=== PATIENT | female | born 1945 | race Two or more races ===

== ENCOUNTER → 2023-12-07 15:16 | Outpatient (REF) | payer OTHER, SELFPAY | LOC: DHCBC MAIN 15:16 | PROVIDERS: ATTENDING PHYSICIAN Internal Medicine Cardiovascular Disease; FAMILY PHYSICIAN Internal Medicine | DX: I25.119 Atherosclerotic heart disease of native coronary artery with unspecified angina pectoris (principal) | CPT/HCPCS: 93306 ==

== ENCOUNTER → 2025-04-26 10:25 | Outpatient (REF) | payer OTHER, SELFPAY | LOC: HWRCS 10:25 | PROVIDERS: ATTENDING PHYSICIAN Internal Medicine Cardiovascular Disease; FAMILY PHYSICIAN Internal Medicine | DX: I25.10 Atherosclerotic heart disease of native coronary artery without angina pectoris (principal); I47.20 Ventricular tachycardia, unspecified; Z95.810 Presence of automatic (implantable) cardiac defibrillator; E11.9 Type 2 diabetes mellitus without complications; I25.2 Old myocardial infarction | CPT/HCPCS: 93306 ==

== ENCOUNTER 2025-07-19 23:25 | Observation (INO) | payer OTHER, SELFPAY ==
[2025-07-19] VITALS (9 sets, daily range): BP systolic 126–179; BP diastolic 70–97; BMI 23.8
[2025-07-19 17:14] LABS: Hematocrit 29.7 % (37.0-47.0); Hemoglobin 9.1 g/dL (12.0-16.0); Mean Corp Hgb Conc. 30.6 g/dL (33.0-37.0); Mean Corpuscular Volume 76.0 fL (81.0-99.0); Nucleated Red Blood Cells % 0 %; Platelet Count 228 10^3/uL (130-400); Red Cell Dist. Width 15.5 % (11.5-14.5)
--- NOTE | 2025-07-19 17:17 | ED.GENMED ---
History of Present Illness
<MICHEAL Morin - Last Filed: 07/19/25 22:43>
General
Chief Complaint: Breathing Problem
Source: patient and family
Exam Limitations: none
Time Seen by Provider: 07/19/25 16:29
Nursing documentation reviewed up to this point in time: agreed with
History of Present Illness
History of Present Illness:
Patient is a 79-year-old female with past medical history of CAD/anterior wall MS history of cardiac arrest, with a drug-eluting stent systolic heart failure, ICD, diabetes hypertension hyperlipidemia diabetes, stent presents to the ER for
evaluation. Yesterday patient had a cough and subjective fevers and started with pain with deep breath and chest discomfort last night. She was unable to lay back because of discomfort and shortness of breath. Denies l/e swelling.
She is on Eliquis and has not missed a dose.
Past History
<MICHEAL Morin - Last Filed: 07/19/25 22:43>
Past History
ED Past Medical History: CAD, GERD, NIDDM and Other (Ischemic cardiomyopathy, long QT)
Social History
Tobacco: Non-smoker
Alcohol: None
Drug: None
Phy Exam
<MICHEAL Morin - Last Filed: 07/19/25 22:43>
General Physical Exam
General Presentation: no apparent distress
General age: appears stated age
General Skin: warm and dry
General Habitus: elderly
General Mental: alert
General Hydration: appears well hydrated
Cardiovascular Exam
Cardiovascular Exam: regular rate/rhythm, no murmur and normal peripheral pulses
Pulmonary Exam
Pulmonary Exam: other (rhonchi b/l )
Neurological Exam
Neurological Exam: alert and oriented x3
Musculoskeletal Exam
Musculoskeletal Exam: full ROM
Skin Exam
Skin Exam: normal color and warm/dry
Psychiatric Exam
Psychiatric Exam: normal mood/affect
Scores
<MICHEAL Morin - Last Filed: 07/19/25 22:43>
Heart Failure Risk
Heart Failure Risk Score: Not Applicable
Course
<MICHEAL Morin - Last Filed: 07/19/25 22:43>
Orders/Labs/Results
Orders:
Orders
07/19/25 16:02
Electrocardiogram (*1) Urgent
Reason for Study: Chest Pain
07/19/25 16:03
EKG- Treatment ONCE
07/19/25 16:56
Complete Blood Count/With Diff Urgent
Comprehensive Metabolic Panel Urgent
NT-proBNP Urgent
Comment: ADD ON
Troponin I Urgent
07/19/25 17:17
Chest [CR Chest - 2 Views ] Urgent
Comment:
Reason For Exam: sob pain with deep breath
07/19/25 17:29
COVID-19 Antigen Urgent
Source: Nasal Swab
Influenza A+B Rapid Molecular Urgent
JUDE Source: Nasal Swab
Specimen Description:
07/19/25 18:53
Add On- LAB Urgent
Tests Added?: cardiac BNP
07/19/25 19:15
Electrocardiogram (*1) Urgent
Reason for Study: Chest Pain
EKG- Treatment ONCE
07/19/25 19:17
Ipratropium/Albuterol Sulfate [Duoneb] 3 ml INH R NOW STA
07/19/25 19:18
Dexamethasone Sod Phosphate [Decadron] 10 mg IV NOW STA
07/19/25 20:22
Troponin I Urgent
07/19/25 21:00
CT Chest PE Study Urgent
Comment:
Reason For Exam: sob
Abnormal Lab Results
07/19/25
16:56
WBC 11.0 H 10^3/uL
(4.8-10.8)
RBC 3.91 L 10^6/uL
(4.20-5.40)
Hgb 9.1 L g/dL
(12.0-16.0)
Hct 29.7 L %
(37.0-47.0)
MCV 76.0 L fL
(81.0-99.0)
MCH 23.3 L pg
(27.0-31.0)
MCHC 30.6 L g/dL
(33.0-37.0)
RDW 15.5 H %
(11.5-14.5)
Absolute Neuts (auto) 9.4 H 10^3/uL
(1.4-6.5)
Absolute Lymphs (auto) 0.9 L 10^3/uL
(1.2-3.4)
Neutrophils % 85.4 H %
(42.2-75.2)
Lymphocytes % 8.0 L %
(20.5-51.1)
Glucose 150 H mg/dl
(70-99)
AST 41 H U/L
(14-36)
ALT 47 H U/L
(0-35)
07/19/25 16:56
07/19/25 16:56
Vital Signs
Initial and Last Documented VS:
Initial Vital Signs
Temp Pulse Resp BP Pulse Ox
98.8 F 105 30 179/97 90
07/19/25 16:03 07/19/25 16:03 07/19/25 16:03 07/19/25 16:03 07/19/25 16:03
Last Documented Vital Signs
Temp Pulse Resp BP Pulse Ox
98.8 F 80 13 138/70 98
07/19/25 16:03 07/19/25 21:45 07/19/25 21:45 07/19/25 21:00 07/19/25 21:45
Corn Shucker consulted with Physician
Corn Shucker consulted with physician?: Yes
Name of Physician Consulted: radu
<Justino Holt, DO - Last Filed: 07/19/25 19:19>
Orders/Labs/Results
Orders:
Orders
07/19/25 16:02
Electrocardiogram (*1) Urgent
Reason for Study: Chest Pain
07/19/25 16:03
EKG- Treatment ONCE
07/19/25 16:56
Complete Blood Count/With Diff Urgent
Comprehensive Metabolic Panel Urgent
NT-proBNP Urgent
Comment: ADD ON
Troponin I Urgent
07/19/25 17:17
Chest [CR Chest - 2 Views ] Urgent
Comment:
Reason For Exam: sob pain with deep breath
07/19/25 17:29
COVID-19 Antigen Urgent
Source: Nasal Swab
Influenza A+B Rapid Molecular Urgent
JUDE Source: Nasal Swab
Specimen Description:
07/19/25 18:53
Add On- LAB Urgent
Tests Added?: cardiac BNP
07/19/25 19:15
Electrocardiogram (*1) Urgent
Reason for Study: Chest Pain
EKG- Treatment ONCE
07/19/25 19:17
Ipratropium/Albuterol Sulfate [Duoneb] 3 ml INH R NOW STA
07/19/25 19:18
Dexamethasone Sod Phosphate [Decadron] 10 mg IV NOW STA
07/19/25 20:22
Troponin I Urgent
07/19/25 21:00
CT Chest PE Study Urgent
Comment:
Reason For Exam: sob
Abnormal Lab Results
07/19/25
16:56
WBC 11.0 H 10^3/uL
(4.8-10.8)
RBC 3.91 L 10^6/uL
(4.20-5.40)
Hgb 9.1 L g/dL
(12.0-16.0)
Hct 29.7 L %
(37.0-47.0)
MCV 76.0 L fL
(81.0-99.0)
MCH 23.3 L pg
(27.0-31.0)
MCHC 30.6 L g/dL
(33.0-37.0)
RDW 15.5 H %
(11.5-14.5)
Absolute Neuts (auto) 9.4 H 10^3/uL
(1.4-6.5)
Absolute Lymphs (auto) 0.9 L 10^3/uL
(1.2-3.4)
Neutrophils % 85.4 H %
(42.2-75.2)
Lymphocytes % 8.0 L %
(20.5-51.1)
Glucose 150 H mg/dl
(70-99)
AST 41 H U/L
(14-36)
ALT 47 H U/L
(0-35)
07/19/25 16:56
07/19/25 16:56
Vital Signs
Initial and Last Documented VS:
Initial Vital Signs
Temp Pulse Resp BP Pulse Ox
98.8 F 105 30 179/97 90
07/19/25 16:03 07/19/25 16:03 07/19/25 16:03 07/19/25 16:03 07/19/25 16:03
Last Documented Vital Signs
Temp Pulse Resp BP Pulse Ox
98.8 F 80 13 138/70 98
07/19/25 16:03 07/19/25 21:45 07/19/25 21:45 07/19/25 21:00 07/19/25 21:45
<MICHEAL Morin - Last Filed: 07/19/25 22:43>
MDM/Problems Addressed
Differential Diagnosis Includes:
Not limited to ACS, CHF, pneumonia, bronchitis, less likely PE
MDM/Problems Addressed:
Patient started with cough yesterday subjective fevers worsening shortness of breath since. difficulty laying back due to shortness of breath. Patient presented here hypoxic rhonchi on exam. Patient was given nebs and steroids which did relieve
her symptoms. After nebulizer her pulse ox has improved. Patient is afebrile white count 11.0 hemoglobin 9.1 slightly decreased from 2022, normal renal function initial cardiac troponin less than 0.012 repeat 0.014 no acute EKG findings neg covid
neg flu.
No acute findings of failure on chest x-ray CAT scan negative for PE findings this is a bronchitis. Patient given additional neb will admit for continued observation .
patient was evaluated by ED physician
<MICHEAL Morin - Last Filed: 07/19/25 22:43>
*Radiology
Radiology exam reviewed: radiology read reviewed
*Pulse Oximetry
SaO2: 94
Oxygen Mode of Delivery: Room air
Patient hypoxic: yes
*EKG
Interpreted by ED Provider?: Yes
Interpretation: abnormal
Heart Rate: 102
Ischemia: non-specific ST changes
*Critical Care Note
Total Time (30-74mins, 75-104mins- exclusive of procedures): Not Applicable
ED Attending Note
<MICHEAL Morin - Last Filed: 07/19/25 22:43>
-
Portions of this chart may have been created with voice recognition software.� Occasional wrong word or��sound alike� substitutions may have occurred due to the inherent limitations of voice recognition software.
<Justino Holt DO - Last Filed: 07/19/25 19:19>
ED Attending Note
Patient seen and examined by attending physician: Yes
I performed the substantive portion of visit, reviewed & personally made and approve the management plan that is documented in note by myself or YU.: Yes
ED Attending Note:
Seen with A[employer] OPERATOR examined independently shortness of breath cough fever on exam requiring oxygen with wheezing, chest x-ray noted, suspect viral versus bacterial pneumonia plan will be nebs oxygen steroids
Discharge Plan
Departure
Patient Disposition: Admit
Date of Disposition: 07/19/25
Time of Disposition: 22:43
Admit to: Telemetry
Admit to doctor: hospitalist
Presentation/result/management discussed w/ accepting MD/DO: Hospitalist
Patient with high blood pressure during this ER visit?: Yes
Condition: Fair
Covid-19: Not Applicable
Discharge Problem:
hypoxia, Bronchitis
Prescriptions:
No Action
latanoprost 0.005 % Drops
1 drp BOTH EYES HS
metformin 500 mg Tablet
250 mg PO BID
acetaminophen [Tylenol] 325 mg Tablet
650 mg PO Q6HPRN PRN (Reason: mild pain)
carvedilol [Coreg] 12.5 mg Tablet
12.5 mg PO BID
isosorbide mononitrate [Imdur] 30 mg Tablet Extended Release 24 Hr
30 mg PO DAILY
Theragen Tablet
1 tab PO DAILY
levothyroxine [Synthroid] 25 mcg Tablet
25 mcg PO DAILY
losartan 100 mg Tablet
100 mg PO DAILY
rosuvastatin [Crestor] 40 mg Tablet
40 mg PO DAILY
Eliquis 5 mg Tablet
5 mg PO BID
aspirin 81 MG tablet,chewable
81 mg PO DAILY@1200
Referrals:
Juan Richmond MD [Family Provider, Internal Medicine]
Interventions
Interventions:
*Risk Screen - Suicide Last Done: 07/19/25 16:06
*General Assessment Last Done: 07/19/25 16:06
*Neglect/Abuse Screening Last Done: 07/19/25 16:06
*ED- Fall Risk Assessment Last Done: 07/19/25 16:06
*ED COVID-19 Vaccine History Last Done: 07/19/25 16:06
*ED Influenza Vaccine History Last Done: 07/19/25 16:06
ED- Cardiac Assessment Last Done: 07/19/25 16:11
ED- Pulmonary Assessment Last Done: 07/19/25 16:11
Discharge Date and Time
Print Language: ANDORRAN
[2025-07-19 17:41] LABS: ALT (SGPT) 47 U/L (0-35); AST (SGOT) 41 U/L (14-36); Albumin 3.9 g/dl (3.5-5.0); Alkaline Phosphatase 88 U/L (38-126); Blood Urea Nitrogen 13 mg/dl (7-17); Calcium 9.0 mg/dl (8.4-10.2); Carbon Dioxide 25 mmol/L (22-30); Chloride 105 mmol/L (98-107); Estimated Creatinine Clearance 48 ml/min; Glucose 150 mg/dl (70-99); Potassium 4.0 mmol/L (3.5-5.1); Sodium 137 mmol/L (135-145); Total Protein 6.7 g/dl (6.3-8.2); eGFR > 60.00
[2025-07-19 17:47] LABS: Troponin I < 0.012 ng/ml
[2025-07-19 17:54] LABS: COVID-19 Antigen Negative (Negative)
[2025-07-19] MEDS: DUONEB 3 ML INH (19:43)
[2025-07-19] MEDS: DECADRON 10 MG IV (19:45)
[2025-07-19 20:58] LABS: Troponin I 0.014 ng/ml
[2025-07-19] MEDS: VENTOLIN NEBULES 2.5 MG INH (22:41)
--- NOTE | 2025-07-19 22:43 | HPS.HSE ---
Family Physician
-
Family Physician: Juan Richmond
Chief Complaint
-
Shortness of breath
History of Present Illness
This is a 79-year-old female with past medical history significant for CAD status post MT and cardiac arrest status post AICD and stenting, ischemic myopathy with slightly reduced EF, bcm-mkdvzsa-vfmcpkyse diabetes, hypertension, hyperlipidemia and
hypothyroid presenting to the emergency department with cough and worsening shortness of breath.
Patient reports that a few days ago she started having sore throat and a mild chest congestion. A family member who also had upper respiratory infection that was very brief. She reports headache and subjective fevers but no measured fevers. She
reported that her cough improved after cough syrup resulting in a fake cough that is difficult to produce. She reports that she became more short of breath with increasing chest tightness and had to come to the emergency department. She was
altered on arrival in the emergency department she was hypoxic. Family reported that after the first round of nebs patient felt much improved and she close it back and take deep breaths. She has no history of blood clots and is currently on
anticoagulation. She denies any acute weight gain or lower extremity edema. She does point to bilateral knee effusions which have been there chronically. She reports orthopnea since the cough began.
In the emergency department patient is afebrile. Blood pressure was 145/73 with a pulse of 87 she was satting 95%. ECG shows a normal sinus rhythm at rate of 93 with known Q waves on unchanged from prior. Troponin was normal. BNP was elevated at
3500 which is similar to prior. Chest x-ray shows no acute infiltrates. CBC shows a white count of 11.0 and hemoglobin of 9.0 which is similar to prior. Platelet count was normal. Electrolytes BUN/creatinine were normal.
COVID test was negative, flu test was negative.
She had a CT of the abdomen pelvis which was negative for PE, issues no focal infiltrates but showed bronchial wall thickening. No pulmonary edema noted.
Medical History
Past Medical History
Past Medical History: Reports Arrhythmia (Proximal atrial fibrillation), CAD, CHF (Ischemic cardiomyopathy), Hypercholesterolemia, Hypothyroidism and NIDDM
Past Surgical History: Reports Other
Social History
Tobacco: Non-smoker
Alcohol: None
Living: With Family
Family History
Family History: Not pertinent
Allergies / Home Medications
Allergies reflects when Allergies were last updated in [employer].
Home Medications with original date entered in [employer]
Allergy/Medication List:
Allergies
Allergy/AdvReac Type Severity Reaction Status Date / Time
No Known Allergies Allergy Verified 05/23/20 18:34
Home Medications
acetaminophen 325 mg tablet (Tylenol) 650 mg PO Q6HPRN PRN mild pain 07/19/25
apixaban 5 mg tablet (Eliquis) 5 mg PO BID 07/19/25
aspirin 81 mg chewable tablet 81 mg PO DAILY@1200 07/19/25
carvedilol 12.5 mg tablet (Coreg) 12.5 mg PO BID 07/19/25
isosorbide mononitrate 30 mg tablet,extended release 24 hr 30 mg PO DAILY 07/19/25
latanoprost 0.005 % eye drops 1 drp BOTH EYES HS 07/19/25
levothyroxine 25 mcg tablet (Synthroid) 25 mcg PO DAILY 07/19/25
losartan 100 mg tablet 100 mg PO DAILY 07/19/25
metformin 500 mg tablet 250 mg PO BID 07/19/25
rosuvastatin 40 mg tablet (Crestor) 40 mg PO DAILY 07/19/25
therapeutic multivitamin 1 tab PO DAILY 07/19/25
Review of Systems
-
Constitutional: Reports Fever
EENT: Reports No Symptoms
Respiratory: Reports Cough and Trouble Breathing
Cardiac: Reports No Symptoms
Abdomen/GI: Reports No Symptoms
: Reports No Symptoms
Musculoskeletal: Reports No Symptoms
Skin: Reports No Symptoms
Neurological: Reports No Symptoms
Endocrine: Reports No Symptoms
Hematologic/Lymphatic: Reports No Symptoms
Psych: Reports No Symptoms
Physical Exam
Vital Signs
Vital Signs
Temp Pulse Resp BP Pulse Ox
98.8 F 87 28 145/73 95
07/19/25 16:03 07/19/25 22:15 07/19/25 22:15 07/19/25 22:00 07/19/25 22:34
Physical Exam
General: Well Developed, Well Nourished and No Apparent Distress
HEENT: NormoCephalic, Moist mucous membranes and Atraumatic
Respiratory: Clear
Cardiac: S1/S2 and Regular Rhythm; No Murmur or Rub
GI: Soft, Non Tender, Non Distended and Normal Bowel Sounds; No Organomegaly
Rectal: Deferred by Provider
Musculoskeletal: No Clubbing, No Cyanosis and No Edema
Skin: No Rash
Neuro: Nonfocal/grossly intact
Laboratory Results
-
07/19/25 16:56
07/19/25 16:56
Laboratory Results
Total Bilirubin 0.6 mg/dl (0.2-1.3) 07/19/25 16:56
AST 41 U/L (14-36) H 07/19/25 16:56
ALT 47 U/L (0-35) H 07/19/25 16:56
Alkaline Phosphatase 88 U/L (38-126) 07/19/25 16:56
Troponin I 0.014 ng/ml 07/19/25 20:22
Data Reviewed
-
Diagnostic Radiology: Image Personally Visualized and interpreted
CT Scan: Report Reviewed by me
Lab Data: Labs Reviewed by me
Old Records: Reviewed
Impression/Plan
-
IMPRESSION:
79-year-old female with past medical history of ischemic cardiomyopathy, history of MT and cardiac arrest status post AICD and stenting with last stent placed 2 years ago and on anticoagulation for CAD, qnk-bjclekh-uljsivduw diabetes coming in with
cough and shortness of breath. Hypoxic on arrival in the emergency department. Currently improved and is satting about 90 to 93% on room air. Chest x-ray is clear. CT shows no pulmonary embolism or acute infiltrates or edema. He did show some
bronchial wall thickening consistent with bronchitis. COVID and flu test are negative. Patient has a slight WBC count increase of 11 the rest of her labs are unremarkable. BNP is similar to prior and likely reflect chronic ischemic
cardiomyopathy. Troponin was negative. ECG is nonischemic.
PLAN:
Acute bronchitis -patient likely with acute bronchitis and no pneumonia but cannot rule out atypical pneumonia entirely. She is afebrile here and no significant leukocytosis and hemodynamically stable. Mild hypoxia. Improved with nebs
- Admit to MedSurg observation
- Prednisone 40 mg daily
- DuoNebs [id number]-[id number], as needed albuterol
- given patient's risk factor we will start her on doxycycline
- Wean oxygen
- Monitor weights
CAD
- Continue
- Continue aspirin
--Continue statin, Imdur and carvedilol
Ischemic cardiomyopathy -BNP elevated, no evidence of volume overload
- Continue losartan, Daily weight
Qbu-iiaoeib-gaajadnkd diabetes
- Hold metformin x 24 hours
- Sliding scale insulin
DVT prophylaxis�on apixaban
CODE STATUS�full code
[2025-07-20] VITALS: BP 151/94
--- NOTE | 2025-07-20 00:13 | PTCARENOTE ---
Patient arrived to unit via stretcher. AAOx3. [address] at 2 liters. Oriented to unit. Call cleaning within reach.
[2025-07-20 00:38] VITALS: BP 189/98; BMI 23.6
[2025-07-20 01:02] VITALS: BMI 23.6
[2025-07-20] MEDS: VIBRAMYCIN 100 MG PO ×2 (01:11→09:18)
[2025-07-20] MEDS: ROBITUSSIN DM 5 ML PO ×2 (01:16→09:38)
[2025-07-20] MEDS: SYNTHROID 25 MCG PO (05:09)
[2025-07-20 06:00] VITALS: BMI 23.6
[2025-07-20 07:00] VITALS: BP 171/92
[2025-07-20 07:15] LABS: Hematocrit 29.0 % (37.0-47.0); Hemoglobin 9.1 g/dL (12.0-16.0); Mean Corp Hgb Conc. 31.4 g/dL (33.0-37.0); Mean Corpuscular Volume 75.9 fL (81.0-99.0); Platelet Count 235 10^3/uL (130-400); Red Cell Dist. Width 15.3 % (11.5-14.5)
[2025-07-20 07:22] LABS: Blood Urea Nitrogen 13 mg/dl (7-17); Calcium 9.2 mg/dl (8.4-10.2); Carbon Dioxide 23 mmol/L (22-30); Chloride 106 mmol/L (98-107); Estimated Creatinine Clearance 55 ml/min; Glucose 219 mg/dl (70-99); Potassium 4.4 mmol/L (3.5-5.1); Sodium 136 mmol/L (135-145); eGFR > 60.00
[2025-07-20 07:53] LABS: Glucose - Point of Care 205 mg/dl (70-99)
[2025-07-20] MEDS: VENTOLIN NEBULES 2.5 MG INH (08:10)
--- NOTE | 2025-07-20 08:40 | W.PN.HOSP.TC ---
Today's Communication/Plan
-
Discharge home
Assessment / Plan
Assessment / Plan
Impression:
79-year-old female with past medical history of ischemic cardiomyopathy, history of ME and cardiac arrest status post AICD and stenting with last stent placed 2 years ago and on anticoagulation for CAD, nyy-buodvhi-bhizqszvc diabetes coming in with
cough and shortness of breath. Hypoxic on arrival in the emergency department. Currently improved and is satting about 90 to 93% on room air. Chest x-ray is clear. CT shows no pulmonary embolism or acute infiltrates or edema. He did show some
bronchial wall thickening consistent with bronchitis. COVID and flu test are negative. Patient has a slight WBC count increase of 11 the rest of her labs are unremarkable. BNP is similar to prior and likely reflect chronic ischemic
cardiomyopathy. Troponin was negative. ECG is nonischemic.
Overall symptoms improved with antibiotic/steroid/breathing treatment.
Currently on room air.
Passed ambulatory pulse ox on exertion.
Will be discharged home
Assessment/plan:
Acute bronchitis -patient likely with acute bronchitis and no pneumonia but cannot rule out atypical pneumonia entirely. She is afebrile here and no significant leukocytosis and hemodynamically stable. Mild hypoxia. Improved with nebs
- Admit to MedSurg observation
- Prednisone 40 mg daily
- DuoNebs [id number], as needed albuterol
- given patient's risk factor we will start her on doxycycline
- Wean oxygen
- Monitor weights
07/20
Discharge home on oral prednisone/doxycycline/breathing treatment
CAD
- Continue
- Continue aspirin
--Continue statin, Imdur and carvedilol
Ischemic cardiomyopathy -BNP elevated, no evidence of volume overload
- Continue losartan, Daily weight
Egs-clebobi-oyhnyqxtu diabetes
- Hold metformin x 24 hours
- Sliding scale insulin
Hypertension.
Continue home meds.
May need adjustment as outpatient since blood pressure was elevated during hospitalization
Pulmonary nodule.
Discussed with family at bedside.
Need follow-up with PCP as outpatient.
Low risk patient with no history of smoking
CODE STATUS: Full code
DVT prophylaxis: Eliquis
Diet: Regular diet
Family communication: Discussed with daughter and granddaughter at bedside
Disposition: Discharge home
Total time spent on today's encounter was 52 minutes which included time spent in counseling the patient/family regarding diagnosis and treatment plan as listed above, goals of care, and symptom management. Case was discussed with nursing staff,
specialists, and care coordinators/case management. All labs and imaging personally reviewed by me. Remainder the time spent in detailed review of previous records, lab data, imaging, and other medical provider documentation.
Anticipated Discharge: Today
Subjective/Interval History
-
Date of Service: July 20, 2025
Patient seen and examined at bedside, denies any chest pain , shortness of breath Improved, no abdominal pain, no nausea, no vomiting, no diarrhea or constipation.
No wheezing, currently on room air.
Objective Data
-
Labs:
Laboratory Results
07/20/25
06:13
WBC 6.8
Hgb 9.1 L
Hct 29.0 L
Plt Count 235
Sodium 136
Potassium 4.4
Chloride 106
Carbon Dioxide 23
BUN 13
Creatinine 0.7
Glucose 219 H
Calcium 9.2
Vital Signs:
Vital Signs
Temp Pulse Resp BP Pulse Ox
97.9 F 77 16 171/92 97
07/20/25 07:00 07/20/25 08:16 07/20/25 08:16 07/20/25 07:00 07/20/25 08:16
I&O
07/19/25 07/20/25 07/21/25
06:59 06:59 06:59
Intake Total 480 / 480
Balance 480 / 480
Physical Exam
-
General: Well Developed, Well Nourished, No Apparent Distress and Comfortable
HEENT: Normocephalic, Atraumatic, Moist Mucous Membranes, No Ptosis, PERRLA and Nose Appears Normal
Respiratory: Rales and Non Labored Respirations
Cardiac: Regular Rhythm and S1/S2
Breast: Deferred by me
GI: Soft, Nontender, Nondistended and Normal Bowel Sounds
Genito-urinary: No Costovertebral Tender
Musculoskeletal: No Clubbing, No Cyanosis and No Edema
Skin: Warm
Neuro: Awake, Alert, Oriented, AO x 3 and No Motor Deficits
Psych: Calm
Data Reviewed
-
Diagnostic Radiology: Image personally visualized and interpreted and Report Reviewed by me
CT Scan: Image personally visualized and interpreted and Report Reviewed by me
Ultrasound: Image personally visualized and interpreted and Report Reviewed by me
MRI: Image personally visualized and interpreted and Report Reviewed by me
Medical Tests (Nuc Med, Echo etc): Image personally visualized and interpreted and Report Reviewed by me
Labs: Labs Reviewed by me
Old Records: Reviewed
[2025-07-20] MEDS: NOVOLOG FLEXPEN-LOW RESISTANCE 2 UNITS SC (09:15)
[2025-07-20] MEDS: DELTASONE 40 MG PO (09:17)
[2025-07-20] MEDS: CRESTOR 40 MG PO (09:18)
[2025-07-20] MEDS: COZAAR 100 MG PO (09:20)
[2025-07-20] MEDS: IMDUR (EXTENDED RELEASE) 30 MG PO (09:20)
[2025-07-20] MEDS: THERAGRAN 1 TABLET PO (09:21)
[2025-07-20] MEDS: COREG 12.5 MG PO (09:22)
[2025-07-20] MEDS: ELIQUIS 5 MG PO (09:22)
[2025-07-20] MEDS: TYLENOL 650 MG PO (09:37)
[2025-07-20] MEDS: FLUZONE HIGH-DOSE 2025-26 0.5 ML IM (13:22)
--- NOTE | 2025-07-20 13:57 | CM ---
Patient was admitted under OBS, OBS letter provided and signed by patient. Patient states she lives with her daughter and son in law in a 2 story home, patient is independent with adl's and ambulation, plan is to home today no needs.
PCP: Dr. Richmond
Pharmacy: [facility] in [place].
--- NOTE | 2025-07-20 14:28 | W.DCSUMMARY ---
Discharge Summary
Discharge Data
Date of Admission: 07/19/25
Date of Discharge: 07/20/25
Total time spent discharging patient (in min): 40
-
Pending Results: No
Hospital Course
Hospital course
79-year-old female with past medical history of ischemic cardiomyopathy, history of ME and cardiac arrest status post AICD and stenting with last stent placed 2 years ago and on anticoagulation for CAD, blx-brzaatg-cztimtrnj diabetes coming in with
cough and shortness of breath. Hypoxic on arrival in the emergency department. Currently improved and is satting about 90 to 93% on room air. Chest x-ray is clear. CT shows no pulmonary embolism or acute infiltrates or edema. He did show some
bronchial wall thickening consistent with bronchitis. COVID and flu test are negative. Patient has a slight WBC count increase of 11 the rest of her labs are unremarkable. BNP is similar to prior and likely reflect chronic ischemic
cardiomyopathy. Troponin was negative. ECG is nonischemic.
Overall symptoms improved with antibiotic/steroid/breathing treatment.
Currently on room air.
Passed ambulatory pulse ox on exertion.
Will be discharged home.
During hospitalization patient was treated from the following
Acute bronchitis -patient likely with acute bronchitis and no pneumonia but cannot rule out atypical pneumonia entirely. She is afebrile here and no significant leukocytosis and hemodynamically stable. Mild hypoxia. Improved with nebs
- Admit to MedSurg observation
- Prednisone 40 mg daily
- DuoNebs itukh-lip-yponk, as needed albuterol
- given patient's risk factor we will start her on doxycycline
- Wean oxygen
- Monitor weights
07/20
Discharge home on oral prednisone/doxycycline/breathing treatment
CAD
- Continue
- Continue aspirin
--Continue statin, Imdur and carvedilol
Ischemic cardiomyopathy -BNP elevated, no evidence of volume overload
- Continue losartan, Daily weight
Haz-siodemj-xwkfbeoqy diabetes
- Hold metformin x 24 hours
- Sliding scale insulin
Hypertension.
Continue home meds.
May need adjustment as outpatient since blood pressure was elevated during hospitalization
Pulmonary nodule.
Discussed with family at bedside.
Need follow-up with PCP as outpatient.
Low risk patient with no history of smoking
CODE STATUS: Full code
DVT prophylaxis: Eliquis
Diet: Regular diet
Family communication: Discussed with daughter and granddaughter at bedside
Disposition: Discharge home.
Total time spent on today's encounter was 40 minutes which included time spent in counseling the patient/family regarding diagnosis and treatment plan as listed above, goals of care, and symptom management. Case was discussed with nursing staff,
specialists, and care coordinators/case management. All labs and imaging personally reviewed by me. Remainder the time spent in detailed review of previous records, lab data, imaging, and other medical provider documentation.
Anticipated Discharge: Today
Discharge Plan
-
Patient Disposition: Home (Routine Discharge)
Discharge Diagnosis/Procedures: Acute bronchitis
Vei-luqvoer-rsllrafja diabetes
Diet: Diabetic, Carb Controlled
Activity: As tolerated
Referrals:
Juan Richmond MD [Family Provider, Internal Medicine]
Prescriptions:
New
ipratropium-albuterol 0.5 mg-3 mg(2.5 mg base)/3 mL Solution For Nebulization
3 ml inhalation R Q4HPRN PRN (Reason: shortness of breath) Qty: 90 0RF
prednisone 20 mg Tablet
40 mg PO DAILY 5 Days Qty: 10 0RF
doxycycline hyclate 100 mg Capsule
100 mg PO Q12 5 Days Qty: 10 0RF
(DME) nebulizers Misc
See Rx Instructions .Route Qty: 1 0RF
Rx Instructions:
As directed
Continued
latanoprost 0.005 % Drops
1 drp BOTH EYES HS
acetaminophen [Tylenol] 325 mg Tablet
650 mg PO Q6HPRN PRN (Reason: mild pain)
carvedilol [Coreg] 12.5 mg Tablet
12.5 mg PO BID
isosorbide mononitrate 30 mg Tablet Extended Release 24 Hr
30 mg PO DAILY
therapeutic multivitamin Tablet
1 tab PO DAILY
levothyroxine [Synthroid] 25 mcg Tablet
25 mcg PO DAILY
losartan 100 mg Tablet
100 mg PO DAILY
rosuvastatin [Crestor] 40 mg Tablet
40 mg PO DAILY
Eliquis 5 mg Tablet
5 mg PO BID
aspirin 81 MG tablet,chewable
81 mg PO DAILY@1200
Held
metformin 500 mg Tablet
250 mg PO BID
Hold Instructions: start on Thursday07/21/2025 evening
Discharge Orders:
Discharge Patient (As Directed); Ordered 07/20/25
Ordered By: Delia Manjarrez
Discharge Date and Time
Discharge Date/Time: 07/20/25 14:25
Print Language: [place]
== END 2025-07-20 14:25 | disposition home or self-care (01) ==
LOC: 4 WEST ACU 23:25
PROVIDERS: Nurse Practitioner; ADMITTING PHYSICIAN Internal Medicine; ATTENDING PHYSICIAN General Practice; EMERGENCY PHYSICIAN Emergency Medicine; FAMILY PHYSICIAN Internal Medicine
DX: J40 Bronchitis, not specified as acute or chronic (principal); R09.02 Hypoxemia; I25.10 Atherosclerotic heart disease of native coronary artery without angina pectoris; I25.5 Ischemic cardiomyopathy; E11.9 Type 2 diabetes mellitus without complications; Z79.01 Long term (current) use of anticoagulants; Z79.899 Other long term (current) drug therapy; Z11.52 Encounter for screening for COVID-19; R91.1 Solitary pulmonary nodule; E03.9 Hypothyroidism, unspecified; I11.0 Hypertensive heart disease with heart failure; I50.9 Heart failure, unspecified; Z79.82 Long term (current) use of aspirin
CPT/HCPCS: 71046; 71275; 80048; 80053; 82962; 83880; 84484; 85025; 85027; 87502; 87811; 90662; 93005; 94640; 96374; 99285; G0008; G0378; Q9967